=== PATIENT | male | born 1995 | race African-American/Black ===

== ENCOUNTER 2017-10-01 14:24 | Emergency (ER) | payer SELFPAY ==
[2017-10-01] MEDS ORDERED: Ketorolac Tromethamine 60 MG/2 ML VIAL ONE (14:58)
[2017-10-01 15:12] LABS: Bilirubin Negative (Negative); Blood, Urine Moderate (Negative); Clarity TURBID (Clear); Glucose, Urine (Dipstick) Negative (Negative); Leukocyte Large (Negative); Nitrite Negative (Negative); Protein, Urine (Dipstick) 100 mg/dL (Neg-Trace); Specific Gravity, Urine 1.026 (1.002-1.036); pH, Urine 6.5 (5.0-9.0)
[2017-10-01 15:25] LABS: Renal Epithelial 0-3 HPF (0-3); Squamous Epithelial 0-3 HPF (0-3)
[2017-10-01 15:26] LABS: Bacteria/HPF 2+ HPF (None Seen)
--- NOTE | 2017-10-01 16:23 | ULT ---
BILATERAL TESTICULAR ULTRASOUND WITH DOPPLER: (spivey scale, color flow, and spectral Doppler) HISTORY: Right testicular pain. FINDINGS: The right testis measures 3.9 x 2.9 x 1.8 cm and the left testis measures 4.1 x 2.0 x 2.4 cm. The ri ght epididymis measures 2.4 x 0.9 x 1 cm and the left epididymis measures 1 x 0.6 x 0.7 cm. There is increased flow to the right testis and epididymis compared to the left. No hydroceles are i dentified. No testicular mass or microlithiasis is seen. A 3 x 4 mm cyst is seen in the right epidi dymal head. IMPRESSION: Findings are consistent with right-sided epididymal orchitis. POS: [facility]
[2017-10-01 17:17] LABS: Hemoglobin 14.1 g/dL (14.0-18.0); Mean Corpuscular HGB CONC 34.2 g/dL (32.0-36.0); Mean Corpuscular Hemoglobin 31.9 pg (27.0-31.0); Mean Corpuscular Volume 93.5 fl (80.0-94.0); Mean Platelet Volume 6.9 fL (7.4-10.4); Platelet Count 238 thou/uL (130-400); RBC Distribution Width 12.1 % (11.5-14.5); Red Blood Cell (RBC) Count 4.42 mill/uL (4.70-6.10); White Blood Cell (WBC) Count 18.1 thou/uL (4.8-10.8)
[2017-10-01] MEDS ORDERED: cefTRIAXone\\ROCEPHIN 250 MG VIAL ONE (17:18)
[2017-10-01] MEDS ORDERED: Lidocaine 1% PF 5 ML VIAL ONE (17:20)
[2017-10-01 17:31] LABS: Band 6 % (5-11); Lymphocytes 7 % (21-51); MDiff Complete? YES; Monocytes 8 % (0-10); Neutrophil 78 % (42-75); PLT Morphology Comment Appears Adequate; RBC Morphology Normal; Reactive Lymphocytes 1 % (0-10)
[2017-10-01 17:38] LABS: ALT (SGPT) 25 U/L (8-55); AST (SGOT) 120 U/L (5-34); Albumin 4.5 g/dL (3.5-5.0); Alkaline Phosphatase 76 U/L (40-150); Anion Gap 14 mmol/L (10-20); BUN (Urea Nitrogen) 7 mg/dL (8.9-20.6); Bilirubin, Total 0.6 mg/dL (0.2-1.2); Calc. Creatinine Clearance 0 mL/min (70-130); Calcium 10.2 mg/dL (7.8-10.44); Carbon Dioxide 24 mmol/L (22-29); Chloride 100 mmol/L (98-107); Estimated GFR-MDRD Greater than 90; Globulin 4.4 g/dL (2.4-3.5); Glucose 97 mg/dL (70-105); Potassium 3.3 mmol/L (3.5-5.1); Protein, Total 8.9 g/dL (6.0-8.3); Sodium 135 mmol/L (136-145)
[2017-10-01] MEDS ORDERED: Doxycycline 100 MG CAP PO SCH (17:45)
[2017-10-03 22:09] LABS: Chlamydia trachomatis by NAA Positive (Negative)
== END 2017-10-01 18:09 | disposition home or self-care (01) ==
LOC: ERS 14:24
DX: N45.3 Epididymo-orchitis (principal)
CPT/HCPCS: 36415; 76870; 80053; 81003; 81015; 85025; 87086; 87491; 87591; 93976; 96372; J0696; J1885; J2001